=== PATIENT | female | born 1955 | race African-American/Black ===

== ENCOUNTER 2017-01-16 12:19 | Emergency (ER) | payer MEDICAID, OTHER ==
[~2017-01-16] VITALS: Ht 167.6 cm; Wt 78.0 kg
[2017-01-16 12:23] VITALS: Ht 167.6 cm; Wt 78.0 kg
[2017-01-16] MEDS ORDERED: ONDANSETRON (ODT) 4 MG TAB ODT STA (12:34)
[2017-01-16 12:36] VITALS: BP 116/79; PULSE 96; RESP 15; TEMP 98.1
[2017-01-16] MEDS ORDERED: HYDR-902 PO (12:36)
[2017-01-16] MEDS ORDERED: PRED20TA PO (12:36)
[2017-01-16] MEDS ORDERED: HYDROCODONE/APAP (10/325) TAB PO ONE (13:00)
[2017-01-16] MEDS ORDERED: predniSONE 20 MG TAB PO ONE (13:00)
--- NOTE | 2017-01-16 13:40 | ERD ---
ER Documentation Chief Complaint Date/Time DATE: 01/16/17 TIME: 13:37 Chief Complaint pt bib self with c/o bilatteral hand pain , hx RA HPI Patient is a 61-year-old female with rheumatoid arthritis who presents with bilateral hand pain. She has a history of rheumatoid arthritis. She was outside in the yard a lot. She said that she started 1 month ago with hand swelling but it has been worse over the past few days. She saw her primary doctor on Wednesday who started her on 5 mg of prednisone daily. She has no fevers and no trauma. She said that her primary doctor is Dr. Messina and she has been given a referral to a card cutter but has not seen a card cutter as of yet. ROS All systems reviewed and are negative except as per history of present illness. Medications Home Meds Active Scripts Prednisone* (Prednisone*) 20 Mg Tab, 60 MG PO DAILY for 4 Days, TAB Prov:CAMILA MENDOZA MD 01/16/17 Hydrocodone/Acetaminophen ([place] 10-325 Tablet) 1 Each Tablet, 1 TAB PO Q6H Y for PAIN, #12 TAB Prov:CAMILA MENDOZA MD 01/16/17 Allergies Allergies: Coded Allergies: No Known Allergy (Unverified , 01/16/17) PMhx/Soc Medical and Surgical Hx: pt denies Medical Hx Hx Alcohol Use: No Hx Substance Use: No Hx Tobacco Use: No Smoking Status: Never smoker FmHx Family History: No diabetes Physical Exam Vitals Vital Signs Date Time Temp Pulse Resp B/P Pulse Ox O2 Delivery O2 Flow Rate FiO2 01/16/17 12:36 98.1 96 15 116/79 97 Room Air 01/16/17 12:23 98.3 76 16 127/83 98 Physical Exam Const: No acute distress Head: Atraumatic Eyes: Normal Conjunctiva ENT: Normal External Ears, Nose and Mouth. Neck: Full range of motion..~ No meningismus. Resp: Clear to auscultation bilaterally Cardio: Regular rate and rhythm, no murmurs Abd: Soft, non tender, non distended. Normal bowel sounds Skin: No petechiae or rashes Back: No midline or flank tenderness Ext: Mild hand swelling bilaterally without warmth to touch or signs of infection Neur: Awake and alert Psych: Normal Mood and Affect Results 24 hrs Current Medications Medications (Trade) Dose Ordered Sig/Jm Route PRN Reason Start Time Stop Time Status Last Admin Dose Admin Prednisone (Prednisone) 60 mg ONCE ONCE PO 01/16/17 13:00 01/16/17 13:01 DC 01/16/17 12:42 Acetaminophen/ Hydrocodone Bitart ([place] (10/325)) 1 tab ONCE ONCE PO 01/16/17 13:00 01/16/17 13:01 DC 01/16/17 12:42 Ondansetron HCl (Zofran Odt) 4 mg ONCE STAT ODT 01/16/17 12:34 01/16/17 12:35 DC 01/16/17 12:42 Procedures/MDM Smoking Cessation Therapy: Pt. was lectured for greater than 3 minutes on the health risks of continued smoking and the benefits of cessation. Patient is a 61-year-old female with rheumatoid arthritis who presents with bilateral hand pain and swelling. I believe the patient has an exacerbation of rheumatoid arthritis. Her dose of prednisone is fairly low and therefore I will give her a 5 day course of both steroids with 60 mg of prednisone daily. The first dose was given in the emergency department. She is already taking ibuprofen. I will give her [place] as well for pain. The patient can return for any worsening symptoms. I believe outpatient management is appropriate. I do not believe the patient requires further workup or admission to the hospital at this time. Departure Diagnosis: Primary Impression: Rheumatoid arthritis flare Additional Impression: Pain Condition: Fair Patient Instructions: Rheumatoid Arthritis Referrals: [facility] Additional Instructions: SPECIALIST: YOU HAVE A MEDICAL CONDITION WHICH REQUIRES YOU TO SEE A SPECIALIST WITHIN THE NEXT 1-2 DAYS. PLEASE FOLLOW UP WITH YOUR PRIMARY PHYSICIAN FOR REFFERAL.IF YOU DO NOT HAVE A PRIMARY CARE PHYSICIAN AND/OR YOU CAN NOT AFFORD TO SEE A PHYSICIAN THE FOLLOWING RESOURCES HAVE BEEN SUPPLIED TO YOU. IT IS YOUR RESPONSIBILITY TO BE SEEN BY THE SPECIALIST CAMILA MENDOZA MD Jan 16, 2017 13:39
== END 2017-01-16 13:13 | disposition home or self-care (01) ==
LOC: E/R 12:19
DX: M06.9 Rheumatoid arthritis, unspecified (principal); M79.642 Pain in left hand; R40.2142 Coma scale, eyes open, spontaneous, at arrival to emergency department; R40.2252 Coma scale, best verbal response, oriented, at arrival to emergency department; R40.2362 Coma scale, best motor response, obeys commands, at arrival to emergency department
CPT/HCPCS: J7512; Z7502; Z7610; 99284

== ENCOUNTER 2017-08-17 19:12 | Inpatient (IN) | payer OTHER ==
[~2017-08-17] VITALS: Ht 170.2 cm; Wt 86.7 kg
[~2017-08-17 19:12] MED LIST: HYDR-902 PO; PRED20TA PO
[2017-08-17 19:57] VITALS: TEMP 98.2
[2017-08-17 19:58] LABS: BASOPHIL # 0.1 10^3/ul (0.0-0.1); BASOPHILS % 0.3 % (0.0-2.0); EOSINOPHILS # 0.3 10^3/ul (0.0-0.5); EOSINOPHILS % 1.9 % (0.0-7.0); HEMATOCRIT 31.9 % (37.0-47.0); HEMOGLOBIN 11.4 g/dl (12.0-16.0); LYMPHOCYTES # 1.4 10^3/ul (0.8-2.9); LYMPHOCYTES % 9.1 % (15.0-51.0); MEAN CORPUSCULAR HEMOGLOBIN 28.3 pg (29.0-33.0); MEAN CORPUSCULAR HGB CONC 35.7 g/dl (32.0-37.0); MEAN CORPUSCULAR VOLUME 79.2 fl (82.0-101.0); MEAN PLATELET VOLUME 9.7 fl (7.4-10.4); MONOCYTE # 0.6 10^3/ul (0.3-0.9); MONOCYTES % 4.1 % (0.0-11.0); NEUTROPHIL # 12.7 10^3/ul (1.6-7.5); NEUTROPHILS % 84.1 % (39.0-77.0); PLATELET COUNT 306 10^3/UL (140-415); RED BLOOD COUNT 4.03 10^6/ul (4.20-5.40); RED CELL DISTRIBUTION WIDTH 15.6 % (11.5-14.5); WHITE BLOOD COUNT 15.1 10^3/ul (4.8-10.8)
[2017-08-17 20:13] LABS: INR 0.97; PROTIME 12.9 Sec (12.2-14.2)
[2017-08-17 20:22] LABS: CALCIUM 8.6 mg/dl (8.4-10.2); CREATININE 1.39 mg/dl (0.44-1.00); POTASSIUM 3.8 mmol/L (3.5-5.1)
--- NOTE | 2017-08-17 20:31 | RADRPT ---
PROCEDURE: X-ray Chest. CLINICAL INDICATION: Chest pain. TECHNIQUE: Single view chest x-ray. COMPARISON: None available. FINDINGS: The cardiomediastinal silhouette is within normal limits. There patchy parenchymal dise ase in the mid and lower lung zones bilaterally. There is no pneumothorax. There are no acute osseo us abnormalities. IMPRESSION: 1. Patchy parenchymal disease in the mid and lower lung zones bilaterally, which may reflect aspira tion or pneumonia. RPTAT: HLBP .Ishan Castañeda MD, MD Date Time Electronically viewed and signed by .Ishan Castañeda MD, on 08/17/2017 20:31 .P/
[2017-08-17] MEDS ORDERED: PRED5TAB PO (20:38)
[2017-08-17 20:39] LABS: TROPONIN-I 0.116 ng/ml (0.00-0.12)
[2017-08-17] MEDS ORDERED: RANI150T9 PO (20:39)
[2017-08-17] MEDS ORDERED: FOLI-49 PO (20:39)
[2017-08-17] MEDS ORDERED: MET25 PO (20:41)
--- NOTE | 2017-08-17 21:20 | ERA ---
ER Documentation Chief Complaint Date/Time DATE: 08/17/17 TIME: 21:11 Chief Complaint BIBA [id number],left side weakness,right facial droop X2 days per pt verbatim HPI This is a 62-year-old female who states that she thinks 3-4 days ago she was walking and had a fall. She said she did not hit her head or get knocked out with said that at that time developed left sided facial numbness and weakness and left upper extremity facial numbness and weakness. She said that she did not go to the hospital because she thought it would go away. She said the symptoms got worse this morning she was trying to get dressed. She says she has a headache that is dull and diffuse no nausea vomiting. She said she had some slurred speech of the onset 3-4 days ago. No visual change. ROS All systems reviewed and are negative except as per history of present illness. Medications Home Meds Reported Medications Methotrexate* (Methotrexate*) 2.5 Mg Tab, 25 MG PO Q SAT, TAB 08/17/17 Folic Acid* (Folic Acid*) 1 Mg Tablet, 2 MG PO DAILY, TAB 08/17/17 Ranitidine Hcl* (Zantac*) Unknown Strength Tablet, PO HS, #30 TAB 08/17/17 Prednisone* (Prednisone*) 5 Mg Tab, 10 MG PO DAILY, TAB 08/17/17 Discontinued Scripts Prednisone* (Prednisone*) 20 Mg Tab, 60 MG PO DAILY for 4 Days, TAB Prov:CAMILA MENDOZA MD 01/16/17 Hydrocodone/Acetaminophen ([place] 10-325 Tablet) 1 Each Tablet, 1 TAB PO Q6H Y for PAIN, #12 TAB Prov:CAMILA MENDOZA MD 01/16/17 Allergies Allergies: Coded Allergies: No Known Allergy (Unverified , 08/17/17) PMhx/Soc History of Surgery: Yes (Right foot) Anesthesia Reaction: No Hx Neurological Disorder: No Hx Respiratory Disorders: No Hx Cardiac Disorders: No Hx Psychiatric Problems: No Hx Miscellaneous Medical Probl: Yes (Lupus? Arthritis) Hx Alcohol Use: No Hx Substance Use: No Hx Tobacco Use: No Smoking Status: Never smoker FmHx Family History: No coronary disease Physical Exam Vitals Vital Signs Date Time Temp Pulse Resp B/P Pulse Ox O2 Delivery O2 Flow Rate FiO2 08/17/17 19:57 98.2 92 20 136/67 99 Nasal Cannula 08/17/17 19:57 Nasal Cannula 2 08/17/17 19:16 99.3 96 18 127/63 95 Physical Exam Const: Well-developed, well-nourished Head: Atraumatic, normocephalic Eyes: Normal Conjunctiva, PERRLA, EOMI, normal sclera, no nystagmus ENT: Normal External Ears, Nose and Mouth, moist mucus membranes. Neck: Full range of motion. No meningismus, no lymphadenopathy. Resp: Clear to auscultation bilaterally, no wheezing, rhonchi, rales Cardio: Regular rate and rhythm, no murmurs, S1 S2 present Abd: Soft, non tender x 4, non distended. Normal bowel sounds, no guarding or rebound, no pulsitile abdominal masses or bruits Skin: No petechiae or rashes, no ecchymosis , no maculopapular rash Back: No midline or flank tenderness Ext: No cyanosis, or edema, FROM x 4, normal inspection, vascularly intact x 4 Neur: Awake and alert, left facial droop with decreased sensation to the left cheek, left upper extremity is weakness with inability to lead welder very much decreased light touch sensation, both lower extremities are normal strength 5 out of 5, no focal findings, cerebellum intact Psych: Normal Mood and Affect Result Diagram: 08/17/17194408/17/171944 Results 24 hrs Laboratory Tests Test 08/17/17 19:45 08/17/17 19:58 White Blood Count 15.110^3/ul Red Blood Count 4.0310^6/ul Hemoglobin 11.4g/dl Hematocrit 31.9% Mean Corpuscular Volume 79.2fl Mean Corpuscular Hemoglobin 28.3pg Mean Corpuscular Hemoglobin Concent 35.7g/dl Red Cell Distribution Width 15.6% Platelet Count 60453^3/UL Mean Platelet Volume 9.7fl Neutrophils % 84.1% Lymphocytes % 9.1% Monocytes % 4.1% Eosinophils % 1.9% Basophils % 0.3% Nucleated Red Blood Cells % 0.0/100WBC Neutrophils # 12.710^3/ul Lymphocytes # 1.410^3/ul Monocytes # 0.610^3/ul Eosinophils # 0.310^3/ul Basophils # 0.110^3/ul Nucleated Red Blood Cells # 0.010^3/ul Prothrombin Time 12.9Sec Prothrombin Time Ratio 1.0 INR International Normalized Ratio 0.97 Activated Partial Thromboplast Time 32.0Sec Sodium Level 141mmol/L Potassium Level 3.8mmol/L Chloride Level 105mmol/L Carbon Dioxide Level 28mmol/L Anion Gap 12 Blood Urea Nitrogen 15mg/dl Creatinine 1.39mg/dl Glucose Level 103mg/dl Hemoglobin A1c 5.7% Calcium Level 8.6mg/dl Troponin I 0.116ng/ml Bedside Glucose 127mg/dL Current Medications Medications (Trade) Dose Ordered Sig/Jm Route PRN Reason Start Time Stop Time Status Last Admin Dose Admin Lorazepam (Ativan) 1 mg ONCE ONCE IV 08/17/17 22:00 08/17/17 22:01 DC 08/17/17 21:56 Procedures/MDM PROCEDURE: X-ray Chest. CLINICAL INDICATION: Chest pain. TECHNIQUE: Single view chest x-ray. COMPARISON: None available. FINDINGS: The cardiomediastinal silhouette is within normal limits. There patchy parenchymal disease in the mid and lower lung zones bilaterally. There is no pneumothorax. There are no acute osseous abnormalities. IMPRESSION: 1. Patchy parenchymal disease in the mid and lower lung zones bilaterally, which may reflect aspiration or pneumonia. RPTAT: HLBP .Ishan Castañeda MD, Date Time Electronically viewed and signed by .Ishan Castañeda MD, MD on 08/17/2017 20:31 .P/ CC: CAMILA MENDOZA MD EKG: Rate/Rhythm: Normal sinus rhythm with inverted T waves in leads III and F QRS, ST, QT: NORMAL CT, QRS, QT] Impression: Abnormal CT scan of the head has been done but the radiology system has crash. They are trying to remove the system to have the scan read. We will have the patient admitted to Dr. ugarte. He has been paged . CT scan was called to me by radiologist that shows a acute/subacute right posterior frontal lobe stroke which would be consistent with her findings on clinical exam of left face and arm weakness and numbness. We will admit to the hospital for further workup and MRI to Departure Diagnosis: Primary Impression: CVA (cerebral vascular accident) Qualified Code: I63.9 - Cerebrovascular accident (CVA), unspecified mechanism Condition: Stable ALFREDA GODFREY DO Aug 17, 2017 21:20
[2017-08-17] MEDS ORDERED: LORAZEPAM 2 MG INJ IV ONE (22:00)
--- NOTE | 2017-08-17 22:09 | RADRPT ---
PROCEDURE: CT Brain without contrast. CLINICAL INDICATION: Weakness for 3-4 days and possible stroke TECHNIQUE: A CT of the brain was performed on a GE [employer] 64-slice CT scanner utilizing axial imaging from the skull base through the vertex without IV contrast. Multiplanar reformatted images were made. Images were reviewed on a PACS workstation. The CTDIvol is 43.14 mGy and the DLP is 845 .89 mGycm. One of the following 3 dose reduction techniques were used during this CT examination: 1) Automated exposure control 2) Adjustment of the mA +/- kV according to patient size or 3) Use of iterative reconstruction technique COMPARISON: None FINDINGS: There is no intracranial hemorrhage, mass effect, or midline shift. No extra-axial fluid collection is seen. The ventricles and sulci are normal in size and configuration. The density of the brain is normal, and the gauthier white matter differentiation appears well-preserved. The visualized scalp and calvarium are normal. The bilateral orbits are normal. The bilateral parana danis sinuses, mastoid air cells and middle ear cavities are clear. IMPRESSION: 1. Acute to subacute ischemic, right posterior peripheral frontal lobe infarct. Recommend CT angiog marcos of the head and neck and/or MRI as clinically indicated. 2. No evidence for acute hemorrhage, hydrocephalus or herniation. A call report was made to Dr. Elias at 08/17/2017 10:06:48 PM following the completion of the exami nation by the undersigned. RPTAT: HDC .Leona Hernandez MD, MD Date Time Electronically viewed and signed by .Leona Hernandez MD, MD on 08/17/2017 22:09 .C/
[2017-08-17] MEDS ORDERED: ASPIRIN (EC) 325 MG TAB PO ONE (22:30)
[2017-08-17] MEDS ORDERED: SOD CHLORIDE 0.9% 1,000 ML IV SCH (23:18)
[2017-08-17] MEDS ORDERED: ONDANSETRON 4 MG INJ IV PRN (23:30)
[2017-08-17] MEDS ORDERED: ACETAMINOPHEN 325 MG TAB PO PRN (23:30)
[2017-08-18] VITALS (12 sets, daily range): BP systolic 124–138; BP diastolic 56–74; PULSE 81–104; RESP 20–22; Ht 170.2 cm; Wt 86.7 kg
[2017-08-18] MEDS ORDERED: ACETAMINOPHEN 325 MG TAB PO PRN
[2017-08-18] MEDS ORDERED: ONDANSETRON 4 MG INJ IV PRN
[2017-08-18] MEDS: FAMOTIDINE 20 MG TAB PO SCH ×3 (01:31→20:14)
[2017-08-18 08:33] LABS: BASOPHIL # 0.1 10^3/ul (0.0-0.1); BASOPHILS % 0.6 % (0.0-2.0); EOSINOPHILS # 0.4 10^3/ul (0.0-0.5); EOSINOPHILS % 2.8 % (0.0-7.0); HEMATOCRIT 31.8 % (37.0-47.0); LYMPHOCYTES # 1.6 10^3/ul (0.8-2.9); LYMPHOCYTES % 13.3 % (15.0-51.0); MEAN CORPUSCULAR HGB CONC 34.6 g/dl (32.0-37.0); MEAN CORPUSCULAR VOLUME 78.1 fl (82.0-101.0); MEAN PLATELET VOLUME 10.4 fl (7.4-10.4); MONOCYTE # 0.7 10^3/ul (0.3-0.9); MONOCYTES % 5.7 % (0.0-11.0); NEUTROPHIL # 9.5 10^3/ul (1.6-7.5); PLATELET COUNT 307 10^3/UL (140-415); RED BLOOD COUNT 4.07 10^6/ul (4.20-5.40); RED CELL DISTRIBUTION WIDTH 15.5 % (11.5-14.5); WHITE BLOOD COUNT 12.3 10^3/ul (4.8-10.8)
[2017-08-18] MEDS ORDERED: ASPIRIN (EC) 325 MG TAB PO SCH (09:00)
[2017-08-18] MEDS: predniSONE 5 MG TAB PO SCH (09:00)
[2017-08-18 09:03] LABS: CALCIUM 8.2 mg/dl (8.4-10.2); CHOL/HDL RATIO 5.8 RATIO; CREATININE 0.94 mg/dl (0.44-1.00); POTASSIUM 4.2 mmol/L (3.5-5.1)
[2017-08-18] MEDS: FOLIC ACID 1 MG TAB PO SCH (09:16)
--- NOTE | 2017-08-18 10:08 | RADRPT ---
PROCEDURE: US Carotids. CLINICAL INDICATION: Right-sided subacute stroke TECHNIQUE: Multiple sonographic of the carotid bifurcation region and vertebral arteries were obta ined utilizing gauthier scale, duplex and color-flow imaging. The images were reviewed on a PACS worksta tion. COMPARISON: None FINDINGS: Evaluation of the right carotid bifurcation region reveals mild calcific atherosclerotic disease. Evaluation of the left carotid bifurcation region reveals mild calcific atherosclerotic disease. There is antegrade flow within the vertebral arteries bilaterally. RIGHT CAROTID MEASUREMENTS: Common Carotid [id number] (cm/sec) Internal Carotid Artery - [id number] (cm/sec) Internal Carotid Artery - mid94 (cm/sec) Internal Carotid Artery - distal 84 (cm/sec) Internal Carotid/Common Carotid1.0 LEFT CAROTID MEASUREMENTS: Common Carotid Artery 113 (cm/sec) Internal Carotid Artery - proximal 125 (cm/sec) Internal Carotid Artery - mid 87 (cm/sec) Internal Carotid Artery - distal 106 (cm/sec) Internal Carotid/Common Carotid 1.1 IMPRESSION: 1. No evidence of a significant stenosis of the right internal carotid artery. 2. Moderate stenosis ( 50 - 69% ) of the left internal carotid artery. 3. Normal antegrade flow in the vertebral arteries bilaterally. Measurement of carotid stenosis is based on peak systolic and diastolic velocity parameters that cor relate to the residual internal carotid diameter with [place] Symptomatic Carotid Endarterect kay[place] Trial (NASCET) based stenosis levels. Normal ( < 50% )- ICA peak systolic velocity < 125 cm/sec, ICA / CCA ratio < 2.0 Moderate stenosis ( 50 - 69% )- ICA peak systolic velocity 125 - 230 cm/sec, ICA / CCA ratio 2.0 - 4.0 Severe stenosis ( >70% )- ICA peak systolic velocity > 230 cm/sec, ICA / CCA ratio > 4.0 RPTAT:AAJJ Physician Grecia Date Time Electronically viewed and signed by Physician Grecia on 08/18/2017 10:08 /
--- NOTE | 2017-08-18 14:50 | HP ---
Date/Time of Note Date/Time of Note DATE: 08/18/17 TIME: 14:24 Assessment/Plan VTE Prophylaxis VTE Prophylaxis Intervention: SCD's Lines/Catheters IV [facility] Urinary Cath still in place: No Assessment/Plan Assessment/Plan 62-year-old female with: 1. Right frontal acute to subacute CVA, mild left hemiparesis, apparently the event happened a week ago. MRI brain pending. CT angiogram head and neck pending. Carotid ultrasound Doppler seems to be within normal. PT/OT/ST has evaluated the patient already. Continue aspirin. Neurology consult in the next 24 hours once MRI and CTA results available Patient agreeable with the plan. A1c 5.7 LDL slightly elevated, will start Lipitor. Continue aspirin 2. Systemic lupus erythematous, patient under the care of Dr. Alvarez, rheumatology in [place], however patient is noncompliant with medication especially the prednisone she refuses to take. Currently stable. She does self medicate her arthritic pain with marijuana daily. Prophylaxis: Pepcid for GI prophylaxis, SCDs for DVT prophylaxis. Disposition: MRI brain, CT angiogram head and neck pending, neurology evaluation in the next 24 hours, discharge planning hopefully in 24-48 hours. HPI/ROS Admit Date/Time Admit Date/Time Aug 17, 2017 at 23:19 Hx of Present Illness Chief complaint: Status post fall with left-sided weakness History of presenting illness: This is a 62-year-old female with reported history of lupus and being seen by Dr. Alvarez, Rheumatology in [place], supposed to be on methotrexate and prednisone but has not been taking the prednisone because of the way it makes her feel, she has been taking the methotrexate however, she fell a week ago and did not seek medical attention, when she talked to her primary care physician yesterday she was sent to the emergency department. She reports left-sided weakness, CAT scan of the brain shows a acute to subacute CVA right posterior peripheral frontal lobe infarct. MRI brain, CTA head and neck are pending. PT/OT/ST evaluation has been done. Depending on results of MRIs, neurology will be consulted in the next 24 hours. Patient denies any nausea, vomiting, fevers, chills, dysphagia, dysarthria. She reports generalized weakness when she takes her methotrexate and her prednisone leading to the fact that she became noncompliant with those medications. She also smokes marijuana every day to take care of her arthritic pain. She denies any previous diagnosis of hypertension, coronary artery disease, CVA. ROS Constitutional: fatigue (When takes her methotrexate and or prednisone) Eyes: no complaints ENT: no complaints Respiratory: no complaints Cardiovascular: no complaints Gastrointestinal: no complaints Genitourinary: bleeding Musculoskeletal: no complaints Neurologic: focal-weakness (Left-sided) Endocrine: no complaints Psychological: depression PMH/Family/Social Past Medical History Systemic lupus erythematous Past Surgical History Status post foot surgery bilaterally remotely Family History Significant Family History: no pertinent family hx Social History Alcohol Use: none Smoking Status: Current some day smoker Drug Use: marijuana (Daily) Exam/Review of Systems Vital Signs Vitals Vital Signs Date Time Temp Pulse Resp B/P Pulse Ox O2 Delivery O2 Flow Rate FiO2 08/18/17 12:00 95 08/18/17 11:19 100.0 20 124/56 98 08/18/17 08:49 Nasal Cannula 2.0 Exam Constitutional: alert, oriented, well developed Psych: other (Very emotional) Head: atraumatic, normocephalic Eyes: EOMI, nl conjunctiva, nl lids ENMT: nl external ears & nose, nl lips & teeth, nl nasal mucosa & septum Respiratory: clear to auscultation, normal air movement Cardiovascular: nl pulses, regular rate and rhythm Gastrointestinal: non-tender, soft Musculoskeletal: nl extremities to inspection, nl gait and stance Extremities: normal pulses, other (No edema, or cyanosis) 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 intact, focal weakness (Mild left sided weakness), nl mental status, nl speech Skin: nl turgor Labs Result Diagram: 08/18/17 0711 08/18/17 0711 Medications Medications Current Medications Aspirin (Ecotrin) 325 mg DAILY PO Last administered on 08/18/17 09:16; Admin Dose 325 MG; Start 08/18/17 at 09:00 Folic Acid (Folic Acid) 2 mg DAILY PO Last administered on 08/18/17 09:16; Admin Dose 2 MG; Start 08/18/17 at 09:00 Methotrexate (Methotrexate) 25 mg Sa@09 PO ; Start 08/21/17 at 09:00 Prednisone (Prednisone) 10 mg DAILY PO ; Start 08/18/17 at 09:00 Famotidine (Pepcid) 20 mg BID PO Last administered on 08/18/17t 09:16; Admin Dose 20 MG; Start 08/18/17 at 00:00 Acetaminophen (Tylenol Tab) 650 mg Q6 PRN PO HEADACHE; Start 08/18/17 at 00:00 Ondansetron HCl (Zofran Inj) 4 mg Q6 PRN IV NAUSEA AND/OR VOMITING; Start at 00:00 Procedures Procedures PROCEDURE: CT Brain without contrast. CLINICAL INDICATION: Weakness for 3-4 days and possible stroke TECHNIQUE: A CT of the brain was performed on a [employer] 64-slice CT scanner utilizing axial imaging from the skull base through the vertex without IV contrast. Multiplanar reformatted images were made. Images were reviewed on a PACS workstation. The CTDIvol is 43.14 mGy and the DLP is 845.89 mGycm. One of the following 3 dose reduction techniques were used during this CT examination: 1) Automated exposure control 2) Adjustment of the mA +/- kV according to patient size or 3) Use of iterative reconstruction technique COMPARISON: None FINDINGS: There is no intracranial hemorrhage, mass effect, or midline shift. No extra- axial fluid collection is seen. The ventricles and sulci are normal in size and configuration. The density of the brain is normal, and the gauthier white matter differentiation appears well-preserved. The visualized scalp and calvarium are normal. The bilateral orbits are normal. The bilateral paranasal sinuses, mastoid air cells and middle ear cavities are clear. IMPRESSION: 1. Acute to subacute ischemic, right posterior peripheral frontal lobe infarct. Recommend CT angiography of the head and neck and/or MRI as clinically indicated. 2. No evidence for acute hemorrhage, hydrocephalus or herniation. A call report was made to Dr. Elias at 08/17/2017 10:06:48 PM following the completion of the examination by the undersigned. PROCEDURE: US Carotids. CLINICAL INDICATION: Right-sided subacute stroke TECHNIQUE: Multiple sonographic of the carotid bifurcation region and vertebral arteries were obtained utilizing gauthier scale, duplex and color-flow imaging. The images were reviewed on a PACS workstation. COMPARISON: None FINDINGS: Evaluation of the right carotid bifurcation region reveals mild calcific atherosclerotic disease. Evaluation of the left carotid bifurcation region reveals mild calcific atherosclerotic disease. There is antegrade flow within the vertebral arteries bilaterally. RIGHT CAROTID MEASUREMENTS: Common Carotid Artery 98 (cm/sec) Internal Carotid Artery - proximal 97 (cm/sec) Internal Carotid Artery - mid 94 (cm/sec) Internal Carotid Artery - distal 84 (cm/sec) Internal Carotid/Common Carotid 1.0 LEFT CAROTID MEASUREMENTS: Common Carotid Artery 113 (cm/sec) Internal Carotid Artery - proximal 125 (cm/sec) Internal Carotid Artery - mid 87 (cm/sec) Internal Carotid Artery - distal 106 (cm/sec) Internal Carotid/Common Carotid 1.1 IMPRESSION: 1. No evidence of a significant stenosis of the right internal carotid artery. 2. Moderate stenosis ( 50 - 69% ) of the left internal carotid artery. 3. Normal antegrade flow in the vertebral arteries bilaterally. Measurement of carotid stenosis is based on peak systolic and diastolic velocity parameters that correlate to the residual internal carotid diameter with [place] Symptomatic Carotid Endarterectomy Trial (NASCET) based stenosis levels. Normal ( < 50% )- ICA peak systolic velocity < 125 cm/sec, ICA / CCA ratio < 2.0 Moderate stenosis ( 50 - 69% )- ICA peak systolic velocity 125 - 230 cm/sec, ICA / CCA ratio 2.0 - 4.0 Severe stenosis ( >70% )- ICA peak systolic velocity > 230 cm/sec, ICA / CCA ratio > 4.0 RPTAT:AAJJ Physician Grecia Date Time Electronically viewed and signed by Jesica Post Physician on 08/18/2017 10 :08 EKG : Normal sinus rhythm with occasional PVCs MARGAUX WINSLOW Aug 18, 2017 14:35
--- NOTE | 2017-08-18 15:01 | RADRPT ---
Echocardiogram Report Patient Name: BENITA HELMS Gender: Female Date: 1955 Study Date: 18-Aug-2017 Blood Bank Order Control Clerk: LUZ MARINA Location: [facility] Ref. Physician: GORDON WINSLOW Quality: Good Procedures: Transthoracic echocardiogram with complete 2D, M-Mode, and doppler examination. Indications: Cerebrovascular Accident. 2D/M Mode Doppler Measurement Value Normal Ranges Measurement Value Normal Ranges AoR Diam MM 2.7 cm JOZEF Vmax 2.3 cm2 LA/Ao MM 1.2 JOZEF VTI 2.3 cm2 LA Dimen MM 3.1 cm AV Peak Khurram 1.3 m/sec LVIDd 2D 4.7 3.5 - 5.6 cm AV Peak PG 6.8 mmHg LVIDs 2D 3.2 2.1 - 4.1 cm LVOT Peak Khurram 1.1 m/sec LVPWd 2D 1.1 0.6 - 1.1 cm LVOT Peak PG 5.1 mmHg IVSd 2D 1.1 0.6 - 1.1 cm MV E Peak Khurram 1.1 m/sec EDV 2D 100.3 cm3 MV A Peak Khurram 1.5 m/sec ESV 2D 31.7 cm3 MV E/A 0.7 EF 2D 60.0 50.0 - 65.0 % MV Decel Time 175 msec LVOT Diam 1.9 cm MV Decel L[place]kin 6 MV E/A 0.7 TR Peak Khurram 2.5 m/sec TR Peak PG 25.1 mmHg Findings Left Ventricle: Normal left ventricular systolic function. Normal left ventricular cavity size. Normal left ventricular wall thickness. Ejection fraction is visually estimated at 60 %. Abnormal Diastolic Function. Right Ventricle: Normal right ventricular size. Normal right ventricular systolic function. Left Atrium: The left atrium is normal in size. Right Atrium: The right atrium is normal in size. Mitral Valve: Normal appearance of the mitral valve. Mild mitral valve regurgitation. Aortic Valve: Normal appearance of the aortic valve. No significant aortic stenosis or insufficiency. Tricuspid Valve: Normal appearance of the tricuspid valve. Estimated peak PA systolic pressure 28 mmHg. There is mild tricuspid regurgitation. Pulmonic Valve: Normal pulmonic valve appearance. Pericardium: Normal pericardium with no significant pericardial effusion. Aorta: Normal aortic root. IVC: Normal size and normal respiratory collapse consistent with normal right atrial pressure. Conclusions 1.Normal left ventricular systolic function. Normal left ventricular cavity size. Normal left ventricular wall thickness. Ejection fraction is visually estimated at 60 %. Abnormal Diastolic Function. 2.Normal right ventricular size. Normal right ventricular systolic function. 3.The left atrium is normal in size. 4.The right atrium is normal in size. 5.Mild mitral valve regurgitation. 6.Estimated peak PA systolic pressure 28 mmHg. There is mild tricuspid regurgitation. 7.No significant aortic stenosis or insufficiency. 8.Normal pericardium with no significant pericardial effusion. Electronically Signed By: Moises Dhaliwal 18-Aug-2017 15:00:[id number] Patient Name: BENITA HELMS Study Date: 18-Aug-2017 [id number]
--- NOTE | 2017-08-18 17:22 | RADRPT ---
PROCEDURE: MR Brain noncontrast. CLINICAL INDICATION: CVA. TECHNIQUE: Multiplanar multisequence noncontrast MRI of the brain was performed. COMPARISON: Noncontrast CT of the head from August 17, 2017. FINDINGS: Evaluation is mildly limited due to motion degradation. The ventricles and sulci are within normal limits. There are acute / recent right posterior frontal-parietal as well as right temporal lobe infarctions . This also involves the right posterior insula. There is associated T2 hyperintensity and gyral bhavesh ma. There are minimal T2 hyperintensities suggesting chronic microvascular ischemic changes. There are T 2 hyperintensities also noted within the marisela suggesting chronic microvascular ischemic changes. There are chronic right thalamic lacunar infarctions. There is no intracranial hemorrhage or extra-axial fluid collection. There is no midline shift. The posterior fossa is unremarkable. The normal intracranial, intravascular flow voids are preserved. The orbits are grossly unremarkable. The visualized paranasal sinuses are well-aerated. There is no destructive osseous lesion. IMPRESSION: Evaluation is mildly limited due to motion degradation. 1. Acute / recent right posterior frontal temporal as well as the right posterior insula infarction s. 2. Minimal chronic microvascular ischemic changes. 3. Chronic right thalamic lacunar infarctions. 4. No intracranial hemorrhage. Further findings as detailed above. RPTAT: PP .Perico Wheat MD, Date Time Electronically viewed and signed by .Perico Wheat MD, on 08/18/2017 17:22 .F/
--- NOTE | 2017-08-18 17:29 | RADRPT ---
PROCEDURE: MRA Head noncontrast. CLINICAL INDICATION: CVA TECHNIQUE: MRA of the head was performed with 3-D sajg-au-thhkka technique without contrast. MIP r econstructions were provided. COMPARISON: There are no similar studies submitted for comparison. FINDINGS: Evaluation is moderately limited due to motion degradation. Carotid arteries: Patent bilaterally without evidence of stenosis. Anterior cerebral arteries: Patent bilaterally without evidence of stenosis. Middle cerebral arteries: There is mild to moderate apparent bilateral M1 middle cerebral artery wil nosis. Posterior cerebral arteries: Patent bilaterally without evidence of stenosis. Anterior communicating artery: Present. Posterior communicating arteries: Present prominent bilaterally. Basilar artery: Patent without evidence of stenosis. Vertebral arteries: Patent bilaterally without evidence of stenosis. Vertebral artery dominance: The left. Aneurysm: No aneurysm is identified. IMPRESSION: Evaluation is moderately limited due to motion degradation. 1. No evidence of aneurysm or intracranial stenosis. 2. Mild to moderate apparent bilateral M1 middle cerebral artery stenosis. CTA of the head may be performed as clinically warranted. Further findings as detailed above. RPTAT: PP .Perico Wheat MD, Date Time Electronically viewed and signed by .Perico Wheat MD, on 08/18/2017 17:29 .F/
[2017-08-18] MEDS ORDERED: SOD CHLORIDE 0.9% 100 ML ONE (18:24)
[2017-08-18] MEDS ORDERED: IOHEXOL 350MG/ML 50 ML BTL ONE (18:24)
[2017-08-18] MEDS ORDERED: IOHEXOL 100 ML ONE (18:24)
[2017-08-18 20:16] LABS: ADD UMIC YES; UR ASCORBIC ACID NEGATIVE (NEGATIVE); UR BACTERIA FEW /HPF (NONE SEEN); UR BILIRUBIN (Dip) NEGATIVE (NEGATIVE); UR BLOOD (Dip) 1+ mg/dL (NEGATIVE); UR CLARITY CLEAR (CLEAR); UR COLOR STRAW (YELLOW); UR GLUCOSE (Dip) NEGATIVE (NEGATIVE); UR KETONES (Dip) NEGATIVE (NEGATIVE); UR LEUKOCYTE ESTERASE (Dip) NEGATIVE Leu/ul (NEGATIVE); UR NITRITE (Dip) NEGATIVE (NEGATIVE); UR RBC 1 /HPF (0-5); UR SPECIFIC GRAVITY (Dip) 1.004 (1.003-1.030); UR TOTAL PROTEIN (Dip) NEGATIVE (NEGATIVE); UR UROBILINOGEN (Dip) NEGATIVE (NEGATIVE)
[2017-08-18 20:34] LABS: BARBITURATES Negative (NEGATIVE); BENZODIAZEPINES Negative (NEGATIVE); COCAINE Negative (NEGATIVE); OPIATES Negative (NEGATIVE)
[2017-08-18 20:37] LABS: CANNABINOIDS Positive (NEGATIVE)
[2017-08-18] MEDS ORDERED: ATORVASTATIN 40 MG TAB PO SCH (21:00)
[2017-08-19] VITALS (9 sets, daily range): BP systolic 118–165; BP diastolic 54–79; PULSE 92–189; RESP 18–20
[2017-08-19 08:02] LABS: BASOPHIL # 0.1 10^3/ul (0.0-0.1); BASOPHILS % 0.4 % (0.0-2.0); EOSINOPHILS # 0.5 10^3/ul (0.0-0.5); EOSINOPHILS % 2.8 % (0.0-7.0); HEMATOCRIT 32.5 % (37.0-47.0); HEMOGLOBIN 11.4 g/dl (12.0-16.0); LYMPHOCYTES # 1.7 10^3/ul (0.8-2.9); LYMPHOCYTES % 10.4 % (15.0-51.0); MEAN CORPUSCULAR HEMOGLOBIN 27.5 pg (29.0-33.0); MEAN CORPUSCULAR HGB CONC 35.1 g/dl (32.0-37.0); MEAN CORPUSCULAR VOLUME 78.3 fl (82.0-101.0); MEAN PLATELET VOLUME 10.7 fl (7.4-10.4); MONOCYTE # 0.8 10^3/ul (0.3-0.9); MONOCYTES % 4.8 % (0.0-11.0); NEUTROPHIL # 13.5 10^3/ul (1.6-7.5); NEUTROPHILS % 81.2 % (39.0-77.0); PLATELET COUNT 324 10^3/UL (140-415); RED BLOOD COUNT 4.15 10^6/ul (4.20-5.40); RED CELL DISTRIBUTION WIDTH 15.7 % (11.5-14.5); WHITE BLOOD COUNT 16.6 10^3/ul (4.8-10.8)
[2017-08-19 08:28] LABS: MAGNESIUM 1.6 mg/dl (1.7-2.5); PHOSPHORUS 3.8 mg/dl (2.5-4.9)
[2017-08-19 08:29] LABS: CALCIUM 8.5 mg/dl (8.4-10.2); CREATININE 0.82 mg/dl (0.44-1.00); POTASSIUM 3.7 mmol/L (3.5-5.1)
--- NOTE | 2017-08-19 08:39 | RADRPT ---
PROCEDURE: CT Angiogram of the head and neck with intravenous contrast CLINICAL INDICATION: Cerebrovascular accident. COMPARISON: MRI 08/18/2017. TECHNIQUE: CT angiogram of the head and neck was obtained. Sagittal and coronal reformations and ma ximum intensity projection reconstructions were provided. Images were obtained before and after the uneventful administration of 115 mL Omnipaque-350 intravenous contrast. Direct measurements of vesse l diameters was made in reference to measurements of the distal internal carotid artery diameter. DOSE: The estimated administered radiation dose was CTDI vol = 35 mGy. DLP = 710 mGy-cm. One or mor e of the following dose reduction techniques were used: automated exposure control, adjustment of th e mA and/or kV according to patient size, or use of iterative reconstruction technique. FINDINGS: BRAIN Parenchyma: Recent infarction within the right middle cerebral artery territories as conspicuous on this examination compared to most recent MRI. Ventricles: No ventricular enlargement or effacement. Extra-axial spaces: No herniation or midline shift. Paranasal sinuses: Clear. Mastoid air cells: Clear. Bones: Normal Additional comment: None. CEREBRAL ANGIOGRAM Aneurysm: No aneurysm identified. Anterior circulation: Internal carotid arteries: No flow-limiting stenosis. Anterior cerebral arteries: No flow-limiting stenosis. Middle cerebral arteries: Apparent stenosis noted on MRI angiogram from 08/18/2017 is not confirmed on this CT angiogram suggesting that the irregularity and apparent narrowing likely represent artifa ct from motion No flow-limiting stenosis. Posterior cerebral arteries: No flow-limiting stenosis. Anterior communicating artery: No flow-limiting stenosis. Posterior communicating arteries: type right posterior communicating arteries bilaterally. Posterior circulation: Basilar artery: The vertebral basilar system is markedly diminutive. The V3/V4 vertebral arteries: No flow-limiting stenosis. Dural venous sinuses: Patent. Additional comment: Thin or dehiscent lateral wall between the right jugular bulb in the external au ditory canal. NECK ANGIOGRAM Aorta: No flow-limiting stenosis. Right common carotid artery: Ulcerated plaque within the distal aspect of the right common carotid a rtery (series 2, image 345). Mild noncalcified atherosclerotic plaque at the right internal carotid artery origin without flow-limiting stenosis. Right internal carotid artery: No flow-limiting stenosis. Right external carotid artery: No flow-limiting stenosis. Left common carotid artery: No flow-limiting stenosis. Left internal carotid artery: No flow-limiting stenosis. Left external carotid artery: No flow-limiting stenosis. V1/V2 vertebral arteries: No flow-limiting stenosis. Vertebral artery dominance: Codominant.. NECK Soft tissues: Normal. Bones: Normal. Lung apices: Bilateral effusions with adjacent atelectasis. Mild para septal emphysema at the lung a pices. Additional comment: None. IMPRESSION: 1. No flow-limiting stenosis or aneurysm. The apparent narrowing of the middle cerebral artery seen on recent MRI angiogram is not confirmed on this examination. 2. Known infarction in the right middle cerebral artery territory is less conspicuous on this examin ation compared to most recent MRI. 3. Ulcerated plaque within the distal aspect of the right common carotid artery. This could represe nt a source of embolic atheroma. 4. Bilateral pleural effusions. RPTAT: EE Physician Regina Date Time Electronically viewed and signed by Physician Regina on 08/19/2017 08:38 LG/
--- NOTE | 2017-08-19 08:40 | RADRPT ---
PROCEDURE: CT Angiogram of the head and neck with intravenous contrast CLINICAL INDICATION: Cerebrovascular accident. COMPARISON: MRI 08/18/2017. TECHNIQUE: CT angiogram of the head and neck was obtained. Sagittal and coronal reformations and max imum intensity projection reconstructions were provided. Images were obtained before and after the u neventful administration of 115 mL Omnipaque-350 intravenous contrast. Direct measurements of vessel diameters was made in reference to measurements of the distal internal carotid artery diameter. DOSE: The estimated administered radiation dose was CTDI vol = 35 mGy. DLP = 710 mGy-cm. One or more of the following dose reduction techniques were used: automated exposure control, adjustment of the mA and/or kV according to patient size, or use of iterative reconstruction technique. FINDINGS: BRAIN Parenchyma: Recent infarction within the right middle cerebral artery territories as conspicuous on this examination compared to most recent MRI. Ventricles: No ventricular enlargement or effacement. Extra-axial spaces: No herniation or midline shift. Paranasal sinuses: Clear. Mastoid air cells: Clear. Bones: Normal Additional comment: None. CEREBRAL ANGIOGRAM Aneurysm: No aneurysm identified. Anterior circulation: Internal carotid arteries: No flow-limiting stenosis. Anterior cerebral arteries: No flow-limiting stenosis. Middle cerebral arteries: Apparent stenosis noted on MRI angiogram from 08/18/2017 is not confirmed on this CT angiogram suggesting that the irregularity and apparent narrowing likely represent artifa ct from motion No flow-limiting stenosis. Posterior cerebral arteries: No flow-limiting stenosis. Anterior communicating artery: No flow-limiting stenosis. Posterior communicating arteries: type right posterior communicating arteries bilaterally. Posterior circulation: Basilar artery: The vertebral basilar system is markedly diminutive. The V3/V4 vertebral arteries: No flow-limiting stenosis. Dural venous sinuses: Patent. Additional comment: Thin or dehiscent lateral wall between the right jugular bulb in the external au ditory canal. NECK ANGIOGRAM Aorta: No flow-limiting stenosis. Right common carotid artery: Ulcerated plaque within the distal aspect of the right common carotid a rtery (series 2, image 345). Mild noncalcified atherosclerotic plaque at the right internal carotid artery origin without flow-limiting stenosis. Right internal carotid artery: No flow-limiting stenosis. Right external carotid artery: No flow-limiting stenosis. Left common carotid artery: No flow-limiting stenosis. Left internal carotid artery: No flow-limiting stenosis. Left external carotid artery: No flow-limiting stenosis. V1/V2 vertebral arteries: No flow-limiting stenosis. Vertebral artery dominance: Codominant.. NECK Soft tissues: Normal. Bones: Normal. Lung apices: Bilateral effusions with adjacent atelectasis. Mild para septal emphysema at the lung a pices. Additional comment: None. IMPRESSION: 1. No flow-limiting stenosis or aneurysm. The apparent narrowing of the middle cerebral artery seen on recent MRI angiogram is not confirmed on this examination. 2. Known infarction in the right middle cerebral artery territory is less conspicuous on this examin ation compared to most recent MRI. 3. Ulcerated plaque within the distal aspect of the right common carotid artery. This could represen t a source of embolic atheroma. 4. Bilateral pleural effusions. RPTAT: EE Physician Regina Date Time Electronically viewed and signed by Physician Regina on 08/19/2017 08:40 LG/
[2017-08-19] MEDS ORDERED: ASPIRIN (EC) 81 MG TAB PO SCH (09:00)
[2017-08-19] MEDS: predniSONE 5 MG TAB PO SCH (09:00)
[2017-08-19] MEDS ORDERED: POTASSIUM CHLORIDE (SR) 20 MEQ TAB PO STA (09:32)
[2017-08-19] MEDS: FOLIC ACID 1 MG TAB PO SCH (09:36)
[2017-08-19] MEDS: FAMOTIDINE 20 MG TAB PO SCH (09:36)
[2017-08-19] MEDS ORDERED: MAGNESIUM SULFATE 2 GM/50 ML 50 ML IVPB ONE (10:00)
[2017-08-19] MEDS ORDERED: CLOPIDOGREL 75 MG TAB PO ONE (11:30)
--- NOTE | 2017-08-19 12:02 | CONS ---
Date/Time of Note Date/Time of Note DATE: 08/19/17 TIME: 11:48 Assessment/Plan Assessment/Plan Chief Complaint/Hosp Course 62 yo female with history of smoking, reported hx of Lupus was taking Methotrexate admitted with left sided weakness. CTA Head/Neck: Bilateral M1 stenosis MRI Brain: acute right posterior frontal temporal infarction, right insula MRA Head/Neck ulcerated plaque in distal Right common carotid Duplex: No evidence of a significant stenosis of the right internal carotid artery. Moderate stenosis ( 50 - 69% ) of the left internal carotid artery. Recommendations: mechanism of stroke likely atheroembolic event from Right ICA plaque also with intracranial atherosclerosis would recommend dual antiplatelet therapy for management ASA + Plavix 75 mg Lipitor 80 mg qhs vascular surgery evaluation, left stenosis is asymptomatic at this time will need to follow with vascular surgery as outpatient for surveillance advised patient smoking cessation is imperative to reduce her risk for recurrent stroke given her history of suspect Lupus, FI[employer] DIRECTOR vasculitis is also a possibility would recommend contacting her Concentrator Operator to obtain further hx regarding diagnosis of Lupus and recommended Steroid dose, she seems resistant to taking steroids and may benefit from other immunosuppressive agents DVT ppx PT/OT/Speech evaluation will follow Problems: Consultation Date/Type/Reason Admit Date/Time Aug 17, 2017 at 23:19 Date of Consultation: Aug 19, 2017 Type of Consultation: Neurology Reason for Consultation evaluation for CVA Referring Provider: MARGAUX WINSLOW Hx of Present Illness 62 year old female active smoker, arthritis with reported history of Lupus was advised to take Methotrexate and Prednisone however has been non-compliant with medications due to reported SE from Prednisone. Over a week ago she fell and p/w left sided weakness, subacute CVA evident on right frontal lobe. She c/o left arm weakness more than left leg, denies any facial weakness or difficulty w her speech. She appears very distressed and feels the Prednisone has caused her current issues. She has a + family hx of Lupus, reportedly her sister from Lupus related complications. left arm leg weakness Eyes: no complaints ENT: no complaints Respiratory: no complaints Cardiovascular: no complaints Gastrointestinal: no complaints Genitourinary: bleeding Musculoskeletal: no complaints Neurologic: focal-weakness (Left-sided) Psychological: other (Very emotional) Past Medical History sister with Lupus, from Lupus related complications Social History active daily smoker, cigarettes and marijuana Alcohol Use: none Smoking Status: Current some day smoker Drug Use: marijuana (Daily) Exam/Review of Systems Vital Signs Vitals Vital Signs Date Time Temp Pulse Resp B/P Pulse Ox O2 Delivery O2 Flow Rate FiO2 08/19/17 08:02 99.7 94 18 118/54 93 08/18/17 20:12 Nasal Cannula 2.0 Intake and Output 08/18/17 08/18/17 08/19/17 15:00 23:00 07:00 Intake Total 1500 ml 500 ml 600 ml Output Total 850 ml Balance 1500 ml 500 ml -250 ml Exam awake and alert oriented to self hospital date has some left sided neglect right gaze preference emotionally very labile, crying and appears very distressed throughout the exam CN: EFRAÍN, right gaze preference can cross left fully on command no nystagmus, left lower facial droop tongue midline Motor: left arm 3/5 strength, left leg 5-/5 right arm and leg full strength Sensory: neglect to right on DSS Reflexes 2+ throughout toes down Results Result Diagram: 08/19/17 0715 08/19/17 0715 Results 24 hrs Laboratory Tests Test 08/18/17 11:54 08/18/17 19:45 08/19/17 07:15 Troponin I 0.075 Urine Color STRAW Urine Clarity CLEAR Urine pH 6.0 Urine Specific [place] 1.004 Urine Ketones NEGATIVE Urine Nitrite NEGATIVE Urine Bilirubin NEGATIVE Urine Urobilinogen NEGATIVE Urine Leukocyte Esterase NEGATIVE Urine Microscopic RBC 1 Urine Microscopic WBC 1 Urine Bacteria FEW A Urine Hemoglobin 1+ H Urine Glucose NEGATIVE Urine Total Protein NEGATIVE Urine Opiates Screen Negative Urine Barbiturates Negative Urine Amphetamines Screen Negative Urine Benzodiazepines Screen Negative Urine Cocaine Screen Negative Urine Cannabinoids Positive White Blood Count 16.6 #H Red Blood Count 4.15 L Hemoglobin 11.4 L Hematocrit 32.5 L Mean Corpuscular Volume 78.3 L Mean Corpuscular Hemoglobin 27.5 L Mean Corpuscular Hemoglobin Concent 35.1 Red Cell Distribution Width 15.7 H Platelet Count 324 Mean Platelet Volume 10.7 H Neutrophils % 81.2 H Lymphocytes % 10.4 L Monocytes % 4.8 Eosinophils % 2.8 Basophils % 0.4 Nucleated Red Blood Cells % 0.0 Neutrophils # 13.5 H Lymphocytes # 1.7 Monocytes # 0.8 Eosinophils # 0.5 Basophils # 0.1 Nucleated Red Blood Cells # 0.0 Sodium Level 138 Potassium Level 3.7 Chloride Level 106 Carbon Dioxide Level 24 Anion Gap 12 Blood Urea Nitrogen 7 Creatinine 0.82 Glucose Level 112 Calcium Level 8.5 Phosphorus Level 3.8 Magnesium Level 1.6 L Medications Medications Current Medications Folic Acid (Folic Acid) 2 mg DAILY PO Last administered on 08/19/17 09:36; Admin Dose 2 MG; Start 08/18/17 at 09:00 Methotrexate (Methotrexate) 25 mg Sa@09 PO ; Start 08/21/17 at 09:00 Prednisone (Prednisone) 10 mg DAILY PO ; Start 08/18/17 at 09:00 Famotidine (Pepcid) 20 mg BID PO Last administered on 08/19/17 09:36; Admin Dose 20 MG; Start 08/18/17 at 00:00 Acetaminophen (Tylenol Tab) 650 mg Q6 PRN PO HEADACHE Last administered on 17:28; Admin Dose 650 MG; Start 08/18/17 at 00:00 Ondansetron HCl (Zofran Inj) 4 mg Q6 PRN IV NAUSEA AND/OR VOMITING; Start at 00:00 Aspirin 81 mg 81 mg DAILY PO Last administered on 08/19/17 09:35; Admin Dose 81 MG; Start 08/19/17 at 09:00 Magnesium Sulfate (Magnesium Sulfate 2 Gm/50 ml) 50 ml @ 25 mls/hr ONCE ONCE IVPB Last administered on 08/19/17 10:32; Admin Dose 25 MLS/HR; Start at 10:00; Stop 08/19/17 at 11:59 Clopidogrel Bisulfate (plaVIX) 75 mg DAILY PO ; Start 08/20/17 at 09:00 Atorvastatin Calcium (Lipitor) 80 mg DAILY@21 PO ; Start 08/19/17 at 21:00 THANG JOHNSON MD Aug 19, 2017 12:01
--- NOTE | 2017-08-19 13:22 | PN ---
Date/Time of Note Date/Time of Note DATE: 08/19/17 TIME: 12:55 Assessment/Plan VTE Prophylaxis VTE Prophylaxis Intervention: LMWH Lines/Catheters IV C[facility]ter Type [facility]from [facility] Saline Lock Urinary Cath still in place: No Assessment/Plan Assessment/Plan 62-year-old female with: 1. 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 CT angiogram neck showing a right carotid broken atheroma likely etiology of the embolic CVA along the right MCA territory Patient also has left carotid artery stenosis, asymptomatic for now. She will need outpatient vascular surgery follow-up. Continue aspirin, Plavix, Lipitor per neurology recommendations. Patient agreeable to take those medications for now. Status post PT/OT/ST evaluation and recommendation for significant versus ARU. This was relayed to the insurance/IPA, for now they are authorizing for residential facility placement. Patient agreeable with the plan. A1c 5.7 2. Systemic lupus erythematous, patient under the care of Dr. Alvarez, rheumatology in [place], however patient is noncompliant with medication especially the prednisone she refuses to take. Currently stable. She does self medicate her arthritic pain with marijuana daily. Follow-up with rheumatology as an outpatient, she is demanding to change her bight maker. 3. Leukocytosis: Very variable, no focal signs of infection, known inflammatory disease/SLE. Continue to observe as outpatient. Prophylaxis: Pepcid for GI prophylaxis, SCDs for DVT prophylaxis. Disposition: Discharged to residential facility today if bed available. Subjective 24 Hr Interval Summary Free Text/Dictation Patient doing well, no fever, slight elevation of white blood cell count likely inflammatory and noninfectious, patient with untreated lupus. She is refusing steroids. No focal signs of infection. She did have an acute CVA embolic from carotid atheroma. Appreciate neurology recommendations. Transfer to residential facility. Exam/Review of Systems Vital Signs Vitals Vital Signs Date Time Temp Pulse Resp B/P Pulse Ox O2 Delivery O2 Flow Rate FiO2 08/19/17 12:38 98.0 91 18 140/59 93 08/18/17 20:12 Nasal Cannula 2.0 Intake and Output 08/18/17 08/18/17 08/19/17 15:00 23:00 07:00 Intake Total 1500 ml 500 ml 600 ml Output Total 850 ml Balance 1500 ml 500 ml -250 ml Exam Constitutional: alert, oriented, well developed Respiratory: clear to auscultation, normal air movement Cardiovascular: nl pulses, regular rate and rhythm Gastrointestinal: non-tender, soft Musculoskeletal: nl extremities to inspection, nl gait and stance Extremities: normal pulses, other (No edema, clubbing or cyanosis) Neurological: COLLABORATIVE TEACHER II-XII intact, focal weakness (Mild left hemiparesis.), nl mental status, nl speech Results Result Diagram: 08/19/1715 08/19/17 0715 Results 24 hrs Laboratory Tests Test 08/18/17 19:45 08/19/17 07:15 Urine Color STRAW Urine Clarity CLEAR Urine pH 6.0 Urine Specific Morrison 1.004 Urine Ketones NEGATIVE Urine Nitrite NEGATIVE Urine Bilirubin NEGATIVE Urine Urobilinogen NEGATIVE Urine Leukocyte Esterase NEGATIVE Urine Microscopic RBC 1 Urine Microscopic WBC 1 Urine Bacteria FEW A Urine Hemoglobin 1+ H Urine Glucose NEGATIVE Urine Total Protein NEGATIVE Urine Opiates Screen Negative Urine Barbiturates Negative Urine Amphetamines Screen Negative Urine Benzodiazepines Screen Negative Urine Cocaine Screen Negative Urine Cannabinoids Positive White Blood Count 16.6 #H Red Blood Count 4.15 L Hemoglobin 11.4 L Hematocrit 32.5 L Mean Corpuscular Volume 78.3 L Mean Corpuscular Hemoglobin 27.5 L Mean Corpuscular Hemoglobin Concent 35.1 Red Cell Distribution Width 15.7 H Platelet Count 324 Mean Platelet Volume 10.7 H Neutrophils % 81.2 H Lymphocytes % 10.4 L Monocytes % 4.8 Eosinophils % 2.8 Basophils % 0.4 Nucleated Red Blood Cells % 0.0 Neutrophils # 13.5 H Lymphocytes # 1.7 Monocytes # 0.8 Eosinophils # 0.5 Basophils # 0.1 Nucleated Red Blood Cells # 0.0 Sodium Level 138 Potassium Level 3.7 Chloride Level 106 Carbon Dioxide Level 24 Anion Gap 12 Blood Urea Nitrogen 7 Creatinine 0.82 Glucose Level 112 Calcium Level 8.5 Phosphorus Level 3.8 Magnesium Level 1.6 L Imaging Free Text/Dictation Echocardiogram Report Patient Name: BENITA HELMS Gender: Female Date: 1955 Study Date: 18-Aug-2017 Mill Supervisor: LUZ MARINA Location: I Ref. Physician: GOLDY, N`DEYE Quality: Good Procedures: Transthoracic echocardiogram with complete 2D, M-Mode, and doppler examination. Indications: Cerebrovascular Accident. 2D/M Mode Doppler Measurement Value Normal Ranges Measurement Value Normal Ranges AoR Diam MM 2.7 cm JOZEF Vmax 2.3 cm2 LA/Ao MM 1.2 JOZEF VTI 2.3 cm2 LA Dimen MM 3.1 cm AV Peak Khurram 1.3 m/sec LVIDd 2D 4.7 3.5 - 5.6 cm AV Peak PG 6.8 mmHg LVIDs 2D 3.2 2.1 - 4.1 cm LVOT Peak Khurram 1.1 m/sec LVPWd 2D 1.1 0.6 - 1.1 cm LVOT Peak PG 5.1 mmHg IVSd 2D 1.1 0.6 - 1.1 cm MV E Peak Khurram 1.1 m/sec EDV 2D 100.3 cm3 MV A Peak Khurram 1.5 m/sec ESV 2D 31.7 cm3 MV E/A 0.7 EF 2D 60.0 50.0 - 65.0 % MV Decel Time 175 msec LVOT Diam 1.9 cm MV Decel Towner 6 MV E/A 0.7 TR Peak Khurram 2.5 m/sec TR Peak PG 25.1 mmHg Findings Left Ventricle: Normal left ventricular systolic function. Normal left ventricular cavity size. Normal left ventricular wall thickness. Ejection fraction is visually estimated at 60 %. Abnormal Diastolic Function. Right Ventricle: Normal right ventricular size. Normal right ventricular systolic function. Left Atrium: The left atrium is normal in size. Right Atrium: The right atrium is normal in size. Mitral Valve: Normal appearance of the mitral valve. Mild mitral valve regurgitation. Aortic Valve: Normal appearance of the aortic valve. No significant aortic stenosis or insufficiency. Tricuspid Valve: Normal appearance of the tricuspid valve. Estimated peak PA systolic pressure 28 mmHg. There is mild tricuspid regurgitation. Pulmonic Valve: Normal pulmonic valve appearance. Pericardium: Normal pericardium with no significant pericardial effusion. Aorta: Normal aortic root. IVC: Normal size and normal respiratory collapse consistent with normal right atrial pressure. Conclusions 1. Normal left ventricular systolic function. Normal left ventricular cavity size. Normal left ventricular wall thickness. Ejection fraction is visually estimated at 60 %. Abnormal Diastolic Function. 2. Normal right ventricular size. Normal right ventricular systolic function. 3. The left atrium is normal in size. 4. The right atrium is normal in size. 5. Mild mitral valve regurgitation. 6. Estimated peak PA systolic pressure 28 mmHg. There is mild tricuspid regurgitation. 7. No significant aortic stenosis or insufficiency. 8. Normal pericardium with no significant pericardial effusion. Electronically Signed By: Moises Dhaliwal 18-Aug-2017 15:00:49 -0700 Medications Medications Current Medications Folic Acid (Folic Acid) 2 mg DAILY PO Last administered on 08/19/17 09:36; Admin Dose 2 MG; Start 08/18/17 at 09:00 Methotrexate (Methotrexate) 25 mg Sa@09 PO ; Start 08/21/17 at 09:00 Prednisone (Prednisone) 10 mg DAILY PO ; Start 08/18/17 at 09:00 Famotidine (Pepcid) 20 mg BID PO Last administered on 08/19/17 09:36; Admin Dose 20 MG; Start 08/18/17 at 00:00 Acetaminophen (Tylenol Tab) 650 mg Q6 PRN PO HEADACHE Last administered on 17:28; Admin Dose 650 MG; Start 08/18/17 at 00:00 Ondansetron HCl (Zofran Inj) 4 mg Q6 PRN IV NAUSEA AND/OR VOMITING; Start at 00:00 Aspirin (Halfprin) 81 mg DAILY PO Last administered on 08/19/17 09:35; Admin Dose 81 MG; Start 08/19/17 at 09:00 Clopidogrel Bisulfate (plaVIX) 75 mg DAILY PO ; Start 08/20/17 at 09:00 Atorvastatin Calcium (Lipitor) 80 mg DAILY@21 PO ; Start 08/19/17 at 21:00 Procedures Procedures PROCEDURE: MR Brain noncontrast. CLINICAL INDICATION: CVA. TECHNIQUE: Multiplanar multisequence noncontrast MRI of the brain was performed. COMPARISON: Noncontrast CT of the head from August 17, 2017. FINDINGS: Evaluation is mildly limited due to motion degradation. The ventricles and sulci are within normal limits. There are acute / recent right posterior frontal-parietal as well as right temporal lobe infarctions. This also involves the right posterior insula. There is associated T2 hyperintensity and gyral edema. There are minimal T2 hyperintensities suggesting chronic microvascular ischemic changes. There are T2 hyperintensities also noted within the marisela suggesting chronic microvascular ischemic changes. There are chronic right thalamic lacunar infarctions. There is no intracranial hemorrhage or extra-axial fluid collection. There is no midline shift. The posterior fossa is unremarkable. The normal intracranial, intravascular flow voids are preserved. The orbits are grossly unremarkable. The visualized paranasal sinuses are well-aerated. There is no destructive osseous lesion. IMPRESSION: Evaluation is mildly limited due to motion degradation. 1. Acute / recent right posterior frontal temporal as well as the right posterior insula infarctions. 2. Minimal chronic microvascular ischemic changes. 3. Chronic right thalamic lacunar infarctions. 4. No intracranial hemorrhage. Further findings as detailed above. RPTAT: PP .Perico Wheat MD, MD Date Time Electronically viewed and signed by .Perico Wheat MD, on 08/18/2017 17:22 PROCEDURE: CT Angiogram of the head and neck with intravenous contrast CLINICAL INDICATION: Cerebrovascular accident. COMPARISON: MRI 08/18/2017. TECHNIQUE: CT angiogram of the head and neck was obtained. Sagittal and coronal reformations and maximum intensity projection reconstructions were provided. Images were obtained before and after the uneventful administration of 115 mL Omnipaque-350 intravenous contrast. Direct measurements of vessel diameters was made in reference to measurements of the distal internal carotid artery diameter. DOSE: The estimated administered radiation dose was CTDI vol = 35 mGy. DLP = 710 mGy-cm. One or more of the following dose reduction techniques were used: automated exposure control, adjustment of the mA and/or kV according to patient size, or use of iterative reconstruction technique. FINDINGS: BRAIN Parenchyma: Recent infarction within the right middle cerebral artery territories as conspicuous on this examination compared to most recent MRI. Ventricles: No ventricular enlargement or effacement. Extra-axial spaces: No herniation or midline shift. Paranasal sinuses: Clear. Mastoid air cells: Clear. Bones: Normal Additional comment: None. CEREBRAL ANGIOGRAM Aneurysm: No aneurysm identified. Anterior circulation: Internal carotid arteries: No flow-limiting stenosis. Anterior cerebral arteries: No flow-limiting stenosis. Middle cerebral arteries: Apparent stenosis noted on MRI angiogram from 2016 is not confirmed on this CT angiogram suggesting that the irregularity and apparent narrowing likely represent artifact from motion No flow-limiting stenosis. Posterior cerebral arteries: No flow-limiting stenosis. Anterior communicating artery: No flow-limiting stenosis. Posterior communicating arteries: type right posterior communicating arteries bilaterally. Posterior circulation: Basilar artery: The vertebral basilar system is markedly diminutive. The V3/V4 vertebral arteries: No flow-limiting stenosis. Dural venous sinuses: Patent. Additional comment: Thin or dehiscent lateral wall between the right jugular bulb in the external auditory canal. NECK ANGIOGRAM Aorta: No flow-limiting stenosis. Right common carotid artery: Ulcerated plaque within the distal aspect of the right common carotid artery (series 2, image 345). Mild noncalcified atherosclerotic plaque at the right internal carotid artery origin without flow- limiting stenosis. Right internal carotid artery: No flow-limiting stenosis. Right external carotid artery: No flow-limiting stenosis. Left common carotid artery: No flow-limiting stenosis. Left internal carotid artery: No flow-limiting stenosis. Left external carotid artery: No flow-limiting stenosis. V1/V2 vertebral arteries: No flow-limiting stenosis. Vertebral artery dominance: Codominant.. NECK Soft tissues: Normal. Bones: Normal. Lung apices: Bilateral effusions with adjacent atelectasis. Mild para septal emphysema at the lung apices. Additional comment: None. IMPRESSION: 1. No flow-limiting stenosis or aneurysm. The apparent narrowing of the middle cerebral artery seen on recent MRI angiogram is not confirmed on this examination. 2. Known infarction in the right middle cerebral artery territory is less conspicuous on this examination compared to most recent MRI. 3. Ulcerated plaque within the distal aspect of the right common carotid artery. This could represent a source of embolic atheroma. 4. Bilateral pleural effusions. RPTAT: EE Physician Regina Date Time Electronically viewed and signed by Physician Regina on 08/19/2017 08: 40 MARGAUX WINSLOW Aug 19, 2017 13:05
--- NOTE | 2017-08-19 13:24 | PDOCDIS ---
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 Of note she is refusing to see her previous mail sorting supervisor MARGAUX Parks Aug 19, 2017 13:24
[2017-08-19] MEDS ORDERED: ATORVASTATIN 80 MG TAB PO SCH (21:00)
[2017-08-20] MEDS ORDERED: CLOPIDOGREL 75 MG TAB PO SCH (09:00)
[2017-08-21] MEDS ORDERED: METHOTREXATE 2.5 MG TAB PO SCH (09:00)
== END 2017-08-19 17:42 | DRG 65 ==
LOC: E/R 19:12 → MS4 23:19
PROVIDERS: ADMIT Internal Medicine; ATTEND Internal Medicine
DX: I63.131 Cerebral infarction due to embolism of right carotid artery (principal); I69.354 Hemiplegia and hemiparesis following cerebral infarction affecting left non-dominant side; M32.9 Systemic lupus erythematosus, unspecified; F12.90 Cannabis use, unspecified, uncomplicated; Z91.14 Patient's other noncompliance with medication regimen; D72.829 Elevated white blood cell count, unspecified; I65.22 Occlusion and stenosis of left carotid artery; Z79.02 Long term (current) use of antithrombotics/antiplatelets; Z79.82 Long term (current) use of aspirin; F17.210 Nicotine dependence, cigarettes, uncomplicated
CPT/HCPCS: 36415; 70450; 70496; 70498; 70544; 70551; 71010; 80048; 80061; 80307; 81001; 82962; 83036; 83735; 84100; 84484; 85025; 85610; 85730; 92610; 93005; 93306; 93880; 96374; 97110; 97116; 97162; 97166; 97530; J2060; J3475; J7030; J7512; Q9967

== ENCOUNTER 2017-08-27 16:25 | Emergency (ER) | payer OTHER ==
[~2017-08-27] VITALS: Wt 80.5 kg
[~2017-08-27 16:25] MED LIST changes: +FOLI-49 PO; -HYDR-902 PO; +MET25 PO; -PRED20TA PO; +PRED5TAB PO
--- NOTE | 2017-08-27 17:21 | ERD ---
ER Documentation Chief Complaint Chief Complaint rash under breasts HPI 62 y/o female discharged today from SNF after having a recent stroke, presents to the ED c/o nonpruritic, nonpainful rash under her breast. Denies fever, chills, no chest pain, no SOB, no headaches. No treatment attempted today ROS All systems reviewed and are negative except as per history of present illness. Medications Home Meds Active Scripts Triamcinolone Acetonide (Triamcinolone Acetonide) 0.5% - 15 Gm Oint..gm., 1 APPLIC TOP BID for 30 Days, #2 TUB Prov:VERONICA JULES MD 08/27/17 Reported Medications Methotrexate* (Methotrexate*) 2.5 Mg Tab, 25 MG PO Q SAT, TAB 08/17/17 Folic Acid* (Folic Acid*) 1 Mg Tablet, 2 MG PO DAILY, TAB 08/17/17 Prednisone* (Prednisone*) 5 Mg Tab, 10 MG PO DAILY, TAB 08/17/17 Allergies Allergies: Coded Allergies: No Known Allergy (Unverified , 08/17/17) PMhx/Soc History of Surgery: Yes (right foot) Anesthesia Reaction: No Hx Neurological Disorder: No Hx Respiratory Disorders: No Hx Cardiac Disorders: No Hx Psychiatric Problems: No Hx Miscellaneous Medical Probl: Yes (lupus) Hx Alcohol Use: No Hx Substance Use: No Hx Tobacco Use: No Physical Exam Vitals Vital Signs Date Time Temp Pulse Resp B/P Pulse Ox O2 Delivery O2 Flow Rate FiO2 08/27/17 16:35 98.0 89 20 129/60 97 Physical Exam Head: Atraumatic Eyes: Normal Conjunctiva ENT: Normal External Ears, Nose and Mouth. Neck: Full range of motion..~ No meningismus. Resp: Clear to auscultation bilaterally Cardio: Regular rate and rhythm, no murmurs Abd: Soft, non tender, non distended. Normal bowel sounds Skin: hypopigmented plaques on bilateral breast fold without signs of infection Procedures/MDM 62y/o female with hx of lupus and recent stroke presents for evaluation of bilat breast rash. No evidence of cellulitis, shingles, breast exam unremarkable. Most likely non infected intertrigo. Medical impression and plan discussed with patient. She will be DC home with a prescription with topical triamcinolone and close observation. F/u with PCP in 2-4 days Departure Diagnosis: Primary Impression: Contact dermatitis Condition: Stable Patient Instructions: Contact Dermatitis VERONICA JULES MD Aug 27, 2017 17:21
[2017-08-27] MEDS ORDERED: TRIA15OI9 TOP (17:22)
== END 2017-08-27 17:33 | disposition home or self-care (01) ==
LOC: FTE 16:25
DX: L25.9 Unspecified contact dermatitis, unspecified cause (principal)
CPT/HCPCS: 99283

== ENCOUNTER 2017-09-19 13:48 | Emergency (ER) | payer OTHER ==
[~2017-09-19] VITALS: Ht 170.2 cm; Wt 80.0 kg
[~2017-09-19 13:48] MED LIST changes: +TRIA15OI9 TOP
[2017-09-19 14:07] VITALS: Ht 170.2 cm; Wt 80.0 kg
[2017-09-19] MEDS ORDERED: SODIUM CHLORIDE 0.9% 1L BAG IV* STA (14:31)
[2017-09-19] MEDS ORDERED: ONDANSETRON 4 MG INJ IV STA (14:31)
[2017-09-19] MEDS ORDERED: ACETAMINOPHEN 500 MG TAB PO STA (14:44)
[2017-09-19 15:04] LABS: BASOPHILS % 0.2 % (0.0-2.0); EOSINOPHILS # 0.3 10^3/ul (0.0-0.5); EOSINOPHILS % 1.5 % (0.0-7.0); HEMOGLOBIN 11.7 g/dl (12.0-16.0); LYMPHOCYTES # 1.2 10^3/ul (0.8-2.9); MEAN CORPUSCULAR HEMOGLOBIN 27.1 pg (29.0-33.0); MEAN CORPUSCULAR HGB CONC 35.5 g/dl (32.0-37.0); MEAN CORPUSCULAR VOLUME 76.6 fl (82.0-101.0); MEAN PLATELET VOLUME 9.2 fl (7.4-10.4); MONOCYTE # 0.3 10^3/ul (0.3-0.9); MONOCYTES % 1.6 % (0.0-11.0); NEUTROPHIL # 15.5 10^3/ul (1.6-7.5); NEUTROPHILS % 89.3 % (39.0-77.0); PLATELET COUNT 374 10^3/UL (140-415); RED BLOOD COUNT 4.31 10^6/ul (4.20-5.40); RED CELL DISTRIBUTION WIDTH 15.9 % (11.5-14.5); WHITE BLOOD COUNT 17.4 10^3/ul (4.8-10.8)
--- NOTE | 2017-09-19 15:13 | RADRPT ---
PROCEDURE: XR Chest. CLINICAL INDICATION: Shortness of breath. TECHNIQUE: Single frontal view. COMPARISON: 08/17/2017. FINDINGS: There is interstitial disease bilaterally in the mid and lower lung zones consistent with pulmonary edema or an inflammatory process. There are small bilateral pleural effusions with left larger than right. The heart size is normal. There is no pneumothorax. IMPRESSION: 1. Bilateral interstitial disease consistent with pulmonary edema or an inflammatory process. 2. Small bilateral pleural effusions with left larger than right. 3. Otherwise unremarkable chest radiograph. RPTAT: QQ .Ryan Szymanski MD, MD Date Time Electronically viewed and signed by .Ryan Szymanski MD, MD on 09/19/2017 15:12 .R/
[2017-09-19 15:20] LABS: ALBUMIN 3.3 g/dl (3.3-4.9); ALBUMIN/GLOBULIN RATIO 1.03; BILIRUBIN,INDIRECT 0.5 mg/dl (0-1.1); BILIRUBIN,TOTAL 0.5 mg/dl (0.2-1.3); CALCIUM 8.6 mg/dl (8.4-10.2); CREATININE 0.8 mg/dl (0.44-1.00); POTASSIUM 3.7 mmol/L (3.5-5.1); TOTAL PROTEIN 6.5 g/dl (6.1-8.1)
[2017-09-19] MEDS ORDERED: ATOR80TA75 PO (15:24)
[2017-09-19] MEDS ORDERED: CLOP75TA27 PO (15:24)
[2017-09-19] MEDS ORDERED: FAMO20TA18 PO (15:25)
[2017-09-19] MEDS ORDERED: APIX5TAB PO (15:25)
[2017-09-19] MEDS ORDERED: SENN-53 PO (15:25)
[2017-09-19] MEDS ORDERED: ASPI-664 PO (15:26)
[2017-09-19] MEDS ORDERED: LEVOFLOXACIN 500MG/D5W (PMX) 100 ML IVPB ONE (15:30)
[2017-09-19] MEDS ORDERED: VANCOMYCIN 1 GM (PMX) 250 ML IVPB SCH (15:30)
[2017-09-19 15:44] LABS: TROPONIN-I 0.028 ng/ml (0.00-0.12)
[2017-09-19 15:58] LABS: INR 0.91; PROTIME 12.3 Sec (12.2-14.2)
[2017-09-19 17:14] LABS: ADD UMIC NO; UR ASCORBIC ACID NEGATIVE (NEGATIVE); UR BILIRUBIN (Dip) NEGATIVE (NEGATIVE); UR BLOOD (Dip) NEGATIVE (NEGATIVE); UR CLARITY CLEAR (CLEAR); UR COLOR YELLOW (YELLOW); UR GLUCOSE (Dip) NEGATIVE (NEGATIVE); UR KETONES (Dip) NEGATIVE (NEGATIVE); UR LEUKOCYTE ESTERASE (Dip) NEGATIVE Leu/ul (NEGATIVE); UR NITRITE (Dip) NEGATIVE (NEGATIVE); UR SPECIFIC GRAVITY (Dip) 1.013 (1.003-1.030); UR TOTAL PROTEIN (Dip) NEGATIVE (NEGATIVE); UR UROBILINOGEN (Dip) NEGATIVE (NEGATIVE)
[2017-09-19] MEDS ORDERED: ACET500C5 PO (17:49)
[2017-09-19] MEDS ORDERED: LEVO500T72 PO (17:49)
[2017-09-19] MEDS ORDERED: ONDA8TAB14 PO (17:49)
--- NOTE | 2017-09-19 17:58 | ERD ---
ER Documentation Chief Complaint Chief Complaint fever, vomitting and diarrhea, headache HPI 62-year-old female presents with complaints of vomiting in the mornings for the last month. She also has some loose bowel movements without blood or mucus. She also has had a cough for the last month since her admission. The vomit is nonbilious nonbloody. She has low-grade fever at triage. History significant for admission 1 month ago for right anterior stroke with residual mild left hemiparesis. She had rehabilitation as well. She is on Eliquis. Patient has a history of possible rheumatoid arthritis. She weaned herself off prednisone earlier this month from 5 mg a day. She takes methotrexate. Medical records shows that she has a history of lupus but this is in doubt by her current court of appeals judge. ROS All systems reviewed and are negative except as per history of present illness. Medications Home Meds Active Scripts Acetaminophen* (Tylophen*) 500 Mg Capsule, 1 CAP PO Q6H Y for PAIN AND OR ELEVATED TEMP, #20 CAP Prov:SABRINA URRUTIA MD 09/19/17 Ondansetron (Ondansetron Odt) 8 Mg Tab.rapdis, 8 MG PO Q6H Y for NAUSEA AND/OR VOMITING, #10 TAB Prov:SABRINA URRUTIA MD 09/19/17 Levofloxacin* (Levaquin*) 500 Mg Tablet, 500 MG PO DAILY for 7 Days, TAB Prov:SABRINA URRUTIA MD 09/19/17 Reported Medications Aspirin (Low Dose Aspirin) 81 Mg Tablet.dr, 81 MG PO DAILY, #30 TAB 09/19/17 Sennosides* (Senna Lax*) 8.6 Mg Tablet, 1 TAB PO DAILY, TAB 09/19/17 Famotidine* (Famotidine*) 20 Mg Tablet, 20 MG PO DAILY, #30 TAB 09/19/17 Apixaban* (Eliquis*) 5 Mg Tablet, 5 MG PO BID, TAB 09/19/17 Clopidogrel Bisulfate (Clopidogrel) 75 Mg Tablet, 75 MG PO DAILY, #30 TAB 09/19/17 Atorvastatin* (Atorvastatin*) 80 Mg Tablet, 80 MG PO QHS, #30 TAB 09/19/17 Methotrexate* (Methotrexate*) 2.5 Mg Tab, 25 MG PO Q SAT, TAB 08/17/17 Folic Acid* (Folic Acid*) 1 Mg Tablet, 2 MG PO DAILY, TAB 08/17/17 Discontinued Reported Medications Prednisone* (Prednisone*) 5 Mg Tab, 10 MG PO DAILY, TAB 08/17/17 Discontinued Scripts Triamcinolone Acetonide (Triamcinolone Acetonide) 0.5% - 15 Gm Oint..gm., 1 APPLIC TOP BID for 30 Days, #2 TUB Prov:VERONICA JULES MD 08/27/17 Allergies Allergies: Coded Allergies: No Known Allergy (Unverified , 09/19/17) PMhx/Soc History of Surgery: Yes (right foot) Anesthesia Reaction: No Hx Neurological Disorder: Yes (CVA) Hx Respiratory Disorders: No Hx Cardiac Disorders: No Hx Psychiatric Problems: No Hx Miscellaneous Medical Probl: Yes (lupus) Hx Alcohol Use: No Hx Substance Use: Yes (marijuana) Hx Tobacco Use: Yes Smoking Status: Never smoker Physical Exam Vitals Vital Signs Date Time Temp Pulse Resp B/P Pulse Ox O2 Delivery O2 Flow Rate FiO2 09/19/17 14:07 100.6 104 23 125/72 94 Physical Exam Const: [], No apparent distress, [id number]. Head: Atraumatic Eyes: Normal Conjunctiva ENT: Normal External Ears, Nose and Mouth. TMs and oropharynx normal. Neck: Full range of motion..~ No meningismus. Resp: Clear to auscultation bilaterally Cardio: Regular rate and rhythm, no murmurs Abd: Soft, non tender, non distended. Normal bowel sounds Skin: No petechiae or rashes Back: No midline or flank tenderness Ext: No cyanosis, or edema Neur: Awake and alert Psych: Normal Mood and Affect Result Diagram: 09/19/17 1450 09/19/17 1450 Results 24 hrs Laboratory Tests Test 09/19/17 14:50 09/19/17 16:46 White Blood Count 17.410^3/ul Red Blood Count 4.3110^6/ul Hemoglobin 11.7g/dl Hematocrit 33.0% Mean Corpuscular Volume 76.6fl Mean Corpuscular Hemoglobin 27.1pg Mean Corpuscular Hemoglobin Concent 35.5g/dl Red Cell Distribution Width 15.9% Platelet Count 92992^3/UL Mean Platelet Volume 9.2fl Neutrophils % 89.3% Lymphocytes % 7.0% Monocytes % 1.6% Eosinophils % 1.5% Basophils % 0.2% Nucleated Red Blood Cells % 0.0/100WBC Neutrophils # 15.510^3/ul Lymphocytes # 1.210^3/ul Monocytes # 0.310^3/ul Eosinophils # 0.310^3/ul Basophils # 0.010^3/ul Nucleated Red Blood Cells # 0.010^3/ul Prothrombin Time 12.3Sec Prothrombin Time Ratio 1.0 INR International Normalized Ratio 0.91 Activated Partial Thromboplast Time 35.0Sec Sodium Level 142mmol/L Potassium Level 3.7mmol/L Chloride Level 106mmol/L Carbon Dioxide Level 24mmol/L Anion Gap 16 Blood Urea Nitrogen 8mg/dl Creatinine 0.80mg/dl Glucose Level 119mg/dl Lactic Acid Level 2.0mmol/L Calcium Level 8.6mg/dl Total Bilirubin 0.5mg/dl Direct Bilirubin 0.00mg/dl Indirect Bilirubin 0.5mg/dl Aspartate Amino Transf (AST/SGOT) 59IU/L Alanine Aminotransferase (ALT/SGPT) 68IU/L Alkaline Phosphatase 53IU/L Troponin I 0.028ng/ml B-Type Natriuretic Peptide 180PG/ML Total Protein 6.5g/dl Albumin 3.3g/dl Globulin 3.20g/dl Albumin/Globulin Ratio 1.03 Urine Color YELLOW Urine Clarity CLEAR Urine pH 5.0 Urine Specific [place] 1.013 Urine Ketones NEGATIVEmg/dL Urine Nitrite NEGATIVEmg/dL Urine Bilirubin NEGATIVEmg/dL Urine Urobilinogen NEGATIVEmg/dL Urine Leukocyte Esterase NEGATIVELeu/ul Urine Hemoglobin NEGATIVEmg/dL Urine Glucose NEGATIVEmg/dL Urine Total Protein NEGATIVEmg/dl Current Medications Medications (Trade) Dose Ordered Sig/Jm Route PRN Reason Start Time Stop Time Status Last Admin Dose Admin Sodium Chloride (NS) 2,480 ml BOLUS OVER 2 HOURS STAT IV* 09/19/17 14:31 09/19/17 14:33 DC 09/19/17 14:31 Ondansetron HCl (Zofran Inj) 4 mg ONCE STAT IV 09/19/17 14:31 09/19/17 14:33 DC 09/19/17 16:23 Acetaminophen 500 mg 500 mg ONCE STAT PO 09/19/17 14:44 09/19/17 14:46 DC 09/19/17 16:23 Levofloxacin/ Dextrose 100 ml @ 100 mls/hr ONCE ONCE IVPB 09/19/17 15:30 09/19/17 16:29 DC Vancomycin HCl (Vancocin) 250 ml @ 125 mls/hr ONCE IVPB 09/19/17 15:30 09/19/17 17:29 DC 09/19/17 16:00 Procedures/MDM Uncertain cause of febrile illness and tachycardia. IV was obtained. Patient was given 30 cc/kg normal saline IV. Blood cultures pending. CBC shows white blood cell count of 17. Hemoglobin 11.7. CMP shows no significant acute abnormalities. Urine is negative. Urine culture pending. BNP only slightly elevated. Troponin negative. EKG: Rate/Rhythm: [Normal Sinus Rhythm] equals 98 QRS, ST, T-waves: [No changes consistent w/ acute ischemia] Impression: [No evidence of ischemia or arrhythmia]. Impression-no acute findings on EKG. Chest X-ray 1V Interpreted by me: Soft Tissue: No acute abnormalities Bones: No acute abnormalities Mediastinum/Cardiac Silhouette/Lungs: [General interstitial lung disease with possible slight effusion on the left. It appears similar to her x-ray 1 month ago. Impression-General perihilar interstitial disease with possible slight left lower lobe effusion. No definite change from previous. Patient presents with sirs criteria and possible pneumonia. Patient was given vancomycin 1 g IV and Levaquin 500 mg IV for possible hospital-acquired pneumonia. Curb 55 score shows patient is low risk for mortality amenable to outpatient treatment and is uncertain if patient has pneumonia but we will treat given these findings on x-ray and no appreciable other significant source of fever and leukocytosis.. Patient is alert and amatory after observation and treatment. Stool for C. difficile pending. Patient felt better after observation and treatment. Patient was treated with Zofran, Levaquin and Tylenol at home and primary care follow-up this week return precautions instruction to return for persistent fever, vomiting despite treatment, shortness of breath, new worsening symptoms, abdominal pain or as directed with primary care. She initially measures criteria but serial exam shows that patient shows no signs or symptoms to suggest sepsis and initial lactic acid is normal. The patient was stable with no new complaints during the ER course. Clinically, there is no current evidence to suggest meningitis, sepsis, acute abdomen, acute coronary syndrome, pulmonary embolism, or any other emergent condition appearing to require further evaluation or hospitalization. The patient should certainly return for any new or worsening symptoms per the aftercare instructions. They should otherwise follow-up with her primary care doctor for reevaluation this week. Departure Diagnosis: Primary Impression: Pneumonia Pneumonia type: due to unspecified organism Laterality: unspecified laterality Lung location: lower lobe of lung Qualified Code: J18.1 - Pneumonia of lower lobe due to infectious organism, unspecified laterality Additional Impression: Fever Fever type: unspecified Qualified Code: R50.9 - Fever, unspecified fever cause Condition: Stable Patient Instructions: Febrile Illness, Uncertain Cause (Adult), Fever Control ( Adult), Pneumonia (Adult) Additional Instructions: Will treat for possible signs of pneumonia but uncertain cause of symptoms. Recheck with primary doctor or for new or worsening symptoms. Drink plenty of fluids at home. SABRINA URRUTIA MD Sep 19, 2017 17:58
== END 2017-09-19 19:13 | disposition home or self-care (01) ==
LOC: FTE 13:48
DX: J18.1 Lobar pneumonia, unspecified organism (principal); R06.02 Shortness of breath; Z79.01 Long term (current) use of anticoagulants; Z79.82 Long term (current) use of aspirin; Z87.891 Personal history of nicotine dependence
CPT/HCPCS: 36415; 71010; 80053; 81003; 83605; 83880; 84484; 85025; 85610; 85730; 87040; 87086; 93005; 96374; 96375; J1956; J2405; J3370; J7030; Z7502; Z7610

== ENCOUNTER 2017-09-24 13:13 | Emergency (ER) | payer OTHER ==
[~2017-09-24] VITALS: Ht 175.3 cm; Wt 79.4 kg
[~2017-09-24 13:13] MED LIST changes: +ACET500C5 PO; +APIX5TAB PO; +ASPI-664 PO; +ATOR80TA75 PO; +CLOP75TA27 PO; +FAMO20TA18 PO; +LEVO500T72 PO; +ONDA8TAB14 PO; -PRED5TAB PO; +SENN-53 PO; -TRIA15OI9 TOP
[2017-09-24 13:15] VITALS: Ht 175.3 cm; Wt 79.4 kg
[2017-09-24] MEDS ORDERED: PROM5SYR2 PO (18:11)
--- NOTE | 2017-09-24 18:16 | ERD ---
ER Documentation Chief Complaint Chief Complaint cough congestion for past few days was here 2 days ago HPI 62-year-old female seen by me a few days ago. She was recently seen for stroke sustained 1 month ago. She has had a productive cough since that time she was treated for URI with Levaquin given findings of possible pneumonia although her x-ray has been stable since her admission one month ago so diagnosis of pneumonia is uncertain. Have a low-grade temperature last week. She is here primarily because of some posttussive vomiting primary in the morning. She is fine throughout the daytime. She denies any leg swelling or chest pain. She denies any new neurologic complaints. She denies any fevers. She has completed her Levaquin almost. The vomit is nonbilious nonbloody and posttussive. ROS All systems reviewed and are negative except as per history of present illness. Medications Home Meds Active Scripts Promethazine HCl/Codeine (Prometh-Codein 6.25-10 mg/5 ml) 5 Ml Syrup, 5 ML PO BID for 5 Days 4 OZ Prov:SABRINA URRUTIA MD 09/24/17 Acetaminophen* (Tylophen*) 500 Mg Capsule, 1 CAP PO Q6H Y for PAIN AND OR ELEVATED TEMP, #20 CAP Prov:SABRINA URRUTIA MD 09/19/17 Ondansetron (Ondansetron Odt) 8 Mg Tab.rapdis, 8 MG PO Q6H Y for NAUSEA AND/OR VOMITING, #10 TAB Prov:SABRINA URRUTIA MD 09/19/17 Levofloxacin* (Levaquin*) 500 Mg Tablet, 500 MG PO DAILY for 7 Days, TAB Prov:SABRINA URRUTIA MD 09/19/17 Reported Medications Aspirin (Low Dose Aspirin) 81 Mg Tablet.dr, 81 MG PO DAILY, #30 TAB 09/19/17 Sennosides* (Senna Lax*) 8.6 Mg Tablet, 1 TAB PO DAILY, TAB 09/19/17 Famotidine* (Famotidine*) 20 Mg Tablet, 20 MG PO DAILY, #30 TAB 09/19/17 Apixaban* (Eliquis*) 5 Mg Tablet, 5 MG PO BID, TAB 09/19/17 Clopidogrel Bisulfate (Clopidogrel) 75 Mg Tablet, 75 MG PO DAILY, #30 TAB 09/19/17 Atorvastatin* (Atorvastatin*) 80 Mg Tablet, 80 MG PO QHS, #30 TAB 09/19/17 Methotrexate* (Methotrexate*) 2.5 Mg Tab, 25 MG PO Q SAT, TAB 08/17/17 Folic Acid* (Folic Acid*) 1 Mg Tablet, 2 MG PO DAILY, TAB 08/17/17 Discontinued Reported Medications Prednisone* (Prednisone*) 5 Mg Tab, 10 MG PO DAILY, TAB 08/17/17 Discontinued Scripts Triamcinolone Acetonide (Triamcinolone Acetonide) 0.5% - 15 Gm Oint..gm., 1 APPLIC TOP BID for 30 Days, #2 TUB Prov:VERONICA JULES MD 08/27/17 Allergies Allergies: Coded Allergies: No Known Allergy (Unverified , 09/19/17) PMhx/Soc History of Surgery: Yes (right foot) Anesthesia Reaction: No Hx Neurological Disorder: Yes (CVA) Hx Respiratory Disorders: No Hx Cardiac Disorders: Yes (HTN, HYPERLIPIDEMIA) Hx Psychiatric Problems: No Hx Miscellaneous Medical Probl: Yes (lupus) Hx Alcohol Use: No Hx Substance Use: Yes (marijuana) Hx Tobacco Use: Yes (1CIG/DAY) Smoking Status: Current every day smoker Physical Exam Vitals Vital Signs Date Time Temp Pulse Resp B/P Pulse Ox O2 Delivery O2 Flow Rate FiO2 09/24/17 13:15 99.0 104 18 134/62 94 Physical Exam Const: [] Alert, [id number]. Head: Atraumatic Eyes: Normal Conjunctiva ENT: Normal External Ears, Nose and Mouth. TMs and oropharynx normal. Neck: Full range of motion..~ No meningismus. No JVD. Resp: Clear to auscultation bilaterally. No rales, wheezing or retractions. Cardio: Regular rate and rhythm, no murmurs Abd: Soft, non tender, non distended. Normal bowel sounds Skin: No petechiae or rashes Back: No midline or flank tenderness Ext: No cyanosis, or edema Neur: Awake and alert Psych: Normal Mood and Affect Procedures/MDM EKG: Rate/Rhythm: [Normal Sinus Rhythm] rate equals 100. QRS, ST, T-waves: [No changes consistent w/ acute ischemia] Impression: [No evidence of ischemia or arrhythmia] patient have no acute findings on EKG. Patient presents with posttussive cough over the last week. X-rays are ordered per patient wishED to leave after EKG after a prolonged wait for x-ray which there was a significant delay. Patient clinically appears much better than when I saw her previous in a week. Current signs or symptoms do not suggest worsening pneumonia or respiratory distress. Doubt CHF. Patient does have a follow-up appointment with her primary doctor for follow-up reverse stroke this week with MRI and CT scan. Patient wishes to follow-up with primary care doctor. She is asking for a short course of promethazine with codeine to treat her persistent cough. We will oblige close follow-up and return precautions. The patient was stable with no new complaints during the ER course. Clinically, there is no current evidence to suggest meningitis, sepsis, acute abdomen, pneumonia, acute coronary syndrome, pulmonary embolism, or any other emergent condition appearing to require further evaluation or hospitalization. The patient should certainly return for any new or worsening symptoms per the aftercare instructions. They should otherwise follow-up with her primary care doctor for reevaluation this week.. Departure Diagnosis: Primary Impression: Cough Condition: Stable Patient Instructions: Cough, Chronic, Uncertain Cause, (Adult) Additional Instructions: Check with primary doctor as directed or scheduled. Recheck otherwise for new or worsening symptoms. SABRINA URRUTIA MD Sep 24, 2017 18:16
[2017-09-24 18:44] VITALS: BP 121/58; PULSE 112; RESP 20; TEMP 99
== END 2017-09-24 18:45 | disposition home or self-care (01) ==
LOC: FTE 13:13
DX: R05 Cough (principal); I10 Essential (primary) hypertension; F17.210 Nicotine dependence, cigarettes, uncomplicated; Z79.01 Long term (current) use of anticoagulants; Z79.82 Long term (current) use of aspirin
CPT/HCPCS: 93005